=== PATIENT | female | born 1935 | race Caucasian/White ===

== ENCOUNTER 2022-07-17 14:01 | Emergency (ER) | payer MEDICARE, OTHER ==
[~2022-07-17] VITALS: Ht 160 cm; Wt 54.4 kg
[2022-07-17] MEDS ORDERED: HYDROXYZINE HCL25 MG PO (14:18)
[2022-07-17] MEDS ORDERED: AMIODARONE HCL200 MG PO (14:18)
[2022-07-17] MEDS ORDERED: POTASSIUM CHLO10 ME1 PO (14:19)
[2022-07-17] MEDS ORDERED: ELIQUIS2.5 MG PO (14:19)
[2022-07-17] MEDS ORDERED: FUROSEMIDE20 MG PO (14:19)
[2022-07-17] MEDS ORDERED: METOPROLOL SUCC25 MG PO (14:20)
[2022-07-17] MEDS ORDERED: CEPHALEXIN500 M1 PO (17:54)
== END 2022-07-17 18:36 | disposition home or self-care (01) ==
LOC: ED 14:01
DX: N39.0 Urinary tract infection, site not specified (principal); K62.3 Rectal prolapse; I48.91 Unspecified atrial fibrillation; E03.9 Hypothyroidism, unspecified; Z79.01 Long term (current) use of anticoagulants; Z79.899 Other long term (current) drug therapy
CPT/HCPCS: 36415; 80053; 81001; 83690; 83735; 85025; 85610; 87077; 87088; 87186; 99284; A9270; J7030